=== PATIENT | male | born 1990 | race Caucasian/White ===

== ENCOUNTER 2021-04-05 21:22 | Inpatient (IN) | payer OTHER ==
[2021-04-05 21:32] VITALS: TEMP 98.7; BMI 28.4
[2021-04-05 22:15] LABS: EOS % 3.7 % (0-4.5); HEMATOCRIT 44.3 % (35.4-49); LYMPH % 28.2 % (8-40); MCH 31.4 pg (25.7-33.7); MEAN CELL VOLUME 92.5 fl (80-96); MEAN PLT VOLUME 8.9 fl (7.5-11.1); MONO % 9.9 % (3.8-10.2); NEUT % 57.2 % (42.8-82.8); PLATELET COUNT 239 10^3/uL (134-434); RBC 4.79 M/mm3 (4.00-5.60); RDW 13.2 % (11.9-15.9); WHITE BLOOD COUNT 5.4 K/mm3 (4.0-10.0)
[2021-04-05 22:42] LABS: CHLORIDE 104 mmol/L (98-107); SODIUM 137 mmol/L (136-145)
[2021-04-05 22:44] LABS: CALCIUM 8.7 mg/dL (8.5-10.1)
[2021-04-05 22:45] LABS: ANION GAP 5 MMOL/L (8-16); BLOOD UREA NITROGEN 14.4 mg/dL (7-18); CO2 28 mmol/L (21-32); GLUCOSE,RANDOM 102 mg/dL (74-106)
[2021-04-05 22:48] LABS: CREATININE 0.8 mg/dL (0.55-1.3); SGOT/AST 28 U/L (15-37); SGPT/ALT 39 U/L (13-61)
[2021-04-05 22:50] LABS: TOT PROT 7.8 g/dl (6.4-8.2)
[2021-04-05 22:51] LABS: ALK PHOS 100 U/L (45-117)
[2021-04-06 01:17] VITALS: BP 127/77; PULSE 75
== END 2021-04-06 01:21 | disposition left against medical advice (07) | DRG 351 ==
LOC: JERFT 21:22 → JER 21:22 → JERBED 23:57
PROVIDERS: ADMIT Internal Medicine; ATTEND Internal Medicine
DX: M21.371 Foot drop, right foot (principal); Z72.89 Other problems related to lifestyle; S84.11XA Injury of peroneal nerve at lower leg level, right leg, initial encounter; W19.XXXA Unspecified fall, initial encounter; Y93.9 Activity, unspecified; Y92.89 Other specified places as the place of occurrence of the external cause; Y99.9 Unspecified external cause status
CPT/HCPCS: 36415; 70450-TC; 72125-TC; 72131-TC; 80053; 84484; 85025; 93005; 93010; 99285-25; C9803; U0003; U0005